=== PATIENT | male | born 1990 | race Caucasian/White ===

== ENCOUNTER 2018-05-17 08:35 | Emergency (ER) | payer OTHER ==
[2018-05-17] MEDS: SOD CHLORIDE 0.9% 1,000 ML IV (09:33)
[2018-05-17] MEDS: HYDROmorphONE 1 MG/ML SYG IV (09:33)
[2018-05-17] MEDS: ONDANSETRON 4 MG INJ IV (09:33)
[2018-05-17 09:48] LABS: ADD MAN DIFF? NO
[2018-05-17 09:52] LABS: ABNORMAL IP MESSAGE 1; BASOPHILS % 0.3 % (0.0-2.0); EOSINOPHILS % 0.3 % (0.0-7.0); HEMATOCRIT 43.4 % (42.0-52.0); HEMOGLOBIN 14.8 g/dl (14.0-18.0); LYMPHOCYTES # 0.5 10^3/ul (0.8-2.9); LYMPHOCYTES % 6.6 % (15.0-51.0); MEAN CORPUSCULAR HEMOGLOBIN 30.6 pg (29.0-33.0); MEAN CORPUSCULAR HGB CONC 34.1 g/dl (32.0-37.0); MEAN CORPUSCULAR VOLUME 89.9 fl (82.0-101.0); MEAN PLATELET VOLUME 9.9 fl (7.4-10.4); MONOCYTE # 0.3 10^3/ul (0.3-0.9); MONOCYTES % 4.1 % (0.0-11.0); NEUTROPHIL # 6.5 10^3/ul (1.6-7.5); NEUTROPHILS % 88.6 % (39.0-77.0); PLATELET COUNT 285 10^3/UL (140-415); POSITIVE DIFF @See below; RED BLOOD COUNT 4.83 10^6/ul (4.70-6.10); RED CELL DISTRIBUTION WIDTH 12.8 % (11.5-14.5)
[2018-05-17 09:52] LABS: WHITE BLOOD COUNT 7.4 10^3/ul (4.8-10.8)
[2018-05-17 10:10] LABS: ALANINE AMINOTRANSFERASE 21 IU/L (13-69); ALBUMIN 4.2 g/dl (3.3-4.9); ALKALINE PHOSPHATASE 63 IU/L (42-121); ANION GAP 12 (5-13); ASPARTATE AMINO TRANSFERASE 21 IU/L (15-46); BILIRUBIN,INDIRECT 0.5 mg/dl (0-1.1); BILIRUBIN,TOTAL 0.5 mg/dl (0.2-1.3); BLOOD UREA NITROGEN 15 mg/dl (7-20); CALCIUM 8.8 mg/dl (8.4-10.2); CARBON DIOXIDE 28 mmol/L (21-31); CHLORIDE 101 mmol/L (97-110); Estimated GFR > 60 mL/min (>60); GLUCOSE 102 mg/dl (70-220); LIPASE 95 U/L (23-300); POTASSIUM 3.2 mmol/L (3.5-5.1); SODIUM 141 mmol/L (135-144); TOTAL PROTEIN 7.2 g/dl (6.1-8.1)
[2018-05-17] MEDS: IOHEXOL 300MG/ML 150 ML BTL (11:15)
[2018-05-17] MEDS: SOD CHLORIDE 0.9% 100 ML (11:15)
[2018-05-17] MEDS: POTASSIUM CHLORIDE (SR) 20 MEQ TAB PO (13:01)
== END 2018-05-17 14:14 | disposition home or self-care (01) ==
LOC: E/R 08:35
DX: R10.84 Generalized abdominal pain (principal); R11.2 Nausea with vomiting, unspecified
CPT/HCPCS: 36415; 74177; 80053; 83690; 85025; 96361; 96374; 96375; 99285-25